=== PATIENT | female | born 1975 | race African-American/Black ===

== ENCOUNTER 2016-07-09 01:50 | Inpatient (IN) | payer OTHER ==
--- NOTE | 2016-06-23 16:05 | History & Physical Pre-Op ---
General Information and [facility] MD Statement: I have seen and personally examined CHRISTINE TREVIZO and documented this H&P. The patient is a 40 year old F who presented with a patient stated chief complaint of right sided low back pain radiating to right buttock and posterior thigh. Source of Information: patient, old records Exam Limitations: no limitations History of Present Illness: Christine is a 40-year-old female who has been complaining of over a year of right sided low back pain radiating to her right buttock, posterior thigh, and into her knee. She does occasionally experience left sided low back pain. She denies any significant left leg symptoms. She denies any numbness/tingling, or weakness in her lower extremities. She does rate her pain between a 6-10/10 in intensity. She does state that it is improved with stretching and worse with lying on her back. She denies any bowel or bladder changes. Christine is unable to lift secondary to her pain. She has tried epidural steroid injections, chiropractic treatment, narcotics, and anti-inflammatory medications, all of which have given her very temporary and minimal symptom relief. Due to the fact that she does have progressively worsening symptoms and is unable to continue with her normal activities of daily living, she wants nothing more to do with nonsurgical treatment. She has been scheduled for a posterior lumbar decompression and fusion at L5-S1 with instrumentation and iliac crest bone grafting on 07/09/2016. Allergies/Medications Allergies: Coded Allergies: No Known Allergies (06/24/16) Home Med list Dhcodeine Bt/Acetaminophn/Caff (Xpqberqeqzyga-Ifwnlzxtmth-Hcld) 320.5 MG-30 MG- 16 MG CAPSULE 30 MG PO Q4 HRS NEEDED PRN pain (Reported) Simvastatin (Simvastatin*) 20 MG TABLET 20 MG PO DAILY hyperlipidemia ( Reported) Compliance With Home Meds: GOOD Past History Medical History Neurological: NONE EENT: NONE Cardiovascular: hyperlipidemia Respiratory: NONE Gastrointestinal: NONE Hepatic: NONE Renal: NONE Musculoskeletal: chronic back pain, disk herniation, degen joint disease, osteoarthritis, sciatica, spinal stenosis Psychiatric: NONE Endocrine: obesity Blood Disorders: NONE Cancer(s): NONE APPLIED EXERCISE PHYSIOLOGIST/Reproductive: NONE Surgical History Pertinent Surgical History: tubal ligation, S/P ORIF RIGHT ANKLE X 2, S/P WISDOM TOOTH EXTRACTION Past Family/Social History Family History Relations & Conditions if any Family history was reviewed; no changes noted. 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 Exam & Diagnostic Data Physical Exam: Height: 5'8" Weight: 248 lbs. Physical Exam General Appearance Alert, Oriented X3, Cooperative, No Acute Distress Skin No Rashes, No Breakdown HEENT Atraumatic, PERRLA, EOMI, Mucous Membr. moist/pink Neck Supple, No JVD, No thryomegaly, +2 Carotid Pulse wo Bruit Lymphatic Cervical nl Cardiovascular Regular Rate, Normal S1, Normal S2, No Murmurs Lungs Clear to Auscultation Abdomen Normal Bowel Sounds, Soft, No Tenderness, No Masses Neurological Strength at 5/5 X4 Ext, Normal Tone, Sensation Intact, Reflexes 2+, pain with lateral bending to the right and with extension of the lumbar spine., tight hamstrings bilaterally Extremities No Clubbing, No Cyanosis, No Edema Vascular Normal Pulses Medication List Current Psychiatric Med(s): Simvastatin 20mg daily Dihydrocodeine 30mg prn pain Diclofenac 50mg Daily -stopped 06/23/16 Assessment/Plan Assessment/Plan: Assessment: DDD/facet arthrosis/lateral disc herniation at L5-S1 Plan: Christine is scheduled for a posterior lumbar decompression and fusion with instrumentation and iliac crest bone grafting at L5-S1 on 07/09/2016. We discussed the procedure in full detail as well as the pre and postoperative course, follow up care and anticipated recovery. We also discussed the risks of surgery not to exclude , paralysis, infection, bleeding, continued pain, failure of the surgery, need for future surgery, DVT, vascular injury, CSF leak, etc. Given these risks, she still wishes to proceed. She is scheduled to follow-up with her primary care physician for preoperative clearance on 2016. Any changes in this patient's plan is based on this patient's outpatient clinical presentation. As Ranked By This Provider Problem List: 1. Hyperlipidemia Attending MD Review Statement Attending Statement Attending MD Statement: examined this patient, discuss w/resident/PA/BLOW DOWN OPERATOR, agreed w/resident/PA/BLOW DOWN OPERATOR, reviewed images
[~2016-07-09] VITALS: Ht 172.7 cm; Wt 112.5 kg
[~2016-07-09 01:50] MED LIST: DICLOFENAC SODI50 M3 PO; DIHYDROCODEIN-1 EACH PO; SIMVASTATIN20 M2 PO
--- NOTE | 2016-07-09 13:14 | Operative Report ---
Operative/Inv Procedure Report Surgery Date: 07/09/16 Name of Procedure: 5 S1 laminectomies discectomy and instrumented pedicle screw fusion L5-S1. Interdiscal cage placement L5-S1 lateral intertransverse process fusion L5-S1 with autologous bone graft. Harvesting of right iliac crest bone graft morcellized implantation of Master graft iliac crest. Use of fluoroscopy. Neuro lysis right L5 nerve root. Pre-Operative Diagnosis: Degenerative disc disease and foraminal stenosis L5-S1 Post-Operative Diagnosis: Same Estimated Blood Loss: 150 Surgeon/Airline Mechanic: ODALYS PHILLIPS,MATY Andrade M.D. Anesthesia: general endotracheal tube Monitors: Neuro monitoring Operative/Procedure Note Note: After induction of anesthesia patient was log rolled into the prone position. Incision was made in the midline and dissection was carried over the spinous processes bilaterally. Deep retractors were placed. The high-speed bur curettes and Kerrisons were used to perform laminectomies at the inferior aspect of L5 and the superior aspect of S1 bilaterally. The left side was prepared for placement of the interdiscal cage. There is severe stenosis in it and adhesions on the right side at L4-5 and a neuro lysis was performed to free up the nerve root. A discectomy was performed on the left side the disc space was debrided with the instrumentation for cage placement. A 9 mm cage was selected an incision was made in the right posterior iliac crest and a subperiosteal dissection was carried laterally over the crest. Esha retractor was placed. The osteotomes and curettes were used to collect morcellized bone graft. The wound was irrigated. Graft site was packed with Master graft covered with Gelfoam and a closure was performed with absorbable suture with nirmal in the skin. The cage was packed with morselized autologous bone graft and tamped into the disc space. This was done using fluoroscopy. Corticotomies were created over each pedicle. The pedicles were probed bilaterally at L5 and S1 the pedicles were tapped checked with the ball tip probe and screws were placed with excellent purchase in all 4 screws. Rods were placed the bolts were tightened and compression the facets were decorticated with a pencil point bur bilaterally at L5-S1 the lateral intertransverse process was decorticated with the high- speed bur between L5 and S1. Bone graft was packed laterally between L5 and S1. AP and lateral fluoroscopy showed appropriate position of hardware. Was copiously irrigated Gelfoam was laid over the laminotomy sites bilaterally. A closure the lumbodorsal fascia and subcutaneous tissue was performed with absorbable suture and the skin was closed with nirmal. After placement of sterile dressings the patient was log rolled on to the stretcher and taken to the recovery room
--- NOTE | 2016-07-09 13:24 | Patient Discharge Instructions ---
Acute Coronary Syndrome Inclusion Criteria At DC or during hospital stay patient has or had the following: ACS DIAGNOSIS No Discharge Core Measures Meds if any: Prescribed or Continued at Discharge Meds if any: NOT Prescribed or Continued at Discharge Congestive Heart Failure Inclusion Criteria At DC or during hospital stay patient has or had the following: CHF DIAGNOSIS No Discharge Core Measures Meds if any: Prescribed or Continued at Discharge Meds if any: NOT Prescribed or Continued at Discharge Cerebrovascular accident Inclusion Criteria At DC or during hospital stay patient has or had the following: CVA/TIA Diagnosis No Discharge Core Measures Meds if any: Prescribed or Continued at Discharge Meds if any: NOT Prescribed or Continued at Discharge Venous thromboembolism Inclusion Criteria VTE Diagnosis No VTE Type NONE VTE Confirmed by (Test) NONE Discharge Core Measures - Per Current guidelines, there needs to be overlap - treatment for the first 5 days of Warfarin therapy. - If discharged on Warfarin prior to 5 days of - overlap therapy, the patient will need to be - assessed for post discharge needs including - *Post discharge parental anticoagulation - *Warfarin and/or parental anticoagulation education - *Follow up date to check INR post discharge At least 5 days overlap therapy as Inpatient No Meds if any: Prescribed or Continued at Discharge Note: Overlap Therapy is Warfarin and Anticoagulant Meds if any: NOT Prescribed or Continued at Discharge
[2016-07-09] MEDS ORDERED: PERCOCET 5-3251 EACH PO (13:29)
[2016-07-09 13:31] LABS: ABSOLUTE BASOPHIL COUNT 0 /CUMM (0.0-0.2); ABSOLUTE EOSINOPHIL COUNT 0 /CUMM (0.0-0.7); ABSOLUTE LYMPH COUNT 1.9 /CUMM (1.2-3.4); ABSOLUTE MONOCYTE COUNT 0.1 /CUMM (0.10-0.60); BASOPHIL % 0.3 % (0.0-2.0); EOSINOPHIL % 0.1 % (0-5); MEAN CORPUSCULAR HGB 31.2 PG (27.0-31.0); MEAN CORPUSCULAR HGB CONC 33.5 G/DL (33.0-37.0); MEAN CORPUSCULAR VOLUME 93.2 FL (81.0-99.0); MEAN PLATELET VOLUME 8.4 FL (7.4-10.4); PLATELET COUNT 246 /CUMM (130-400); RBC DISTRIBUTION WIDTH 13.3 % (11.5-14.5); RED BLOOD CELL CT 3.97 /CUMM (4.20-5.40)
[2016-07-09 13:43] LABS: WHITE BLOOD CELL COUNT 12.1 /CUMM (4.8-10.8)
[2016-07-09 14:41] VITALS: BP 144/72
--- NOTE | 2016-07-09 15:53 | RADIOLOGY REPORT ---
EXAMINATION: XR LUMBOSACRAL SPINE CLINICAL INFORMATION: L5-S1 fusion in OR. COMPARISON: None TECHNIQUE: Fluoroscopic equipment was dedicated to the operating room for the performance of a lumbar spine fusion. 4 spot films were acquired and are archived in PACS. FLUOROSCOPY TIME: 0.3 minutes. FINDINGS: Serial images demonstrate posterior spinal fusion at the L5-S1 level with transpedicular screw placement. Alignment is anatomic. IMPRESSION: Administrative dictation for L5-S1 fusion.
--- NOTE | 2016-07-09 16:04 | PN- Orthopedic ---
Subjective Subjective: postop check: Patient presents to floor, uncomfortable, pain in her back is moderate to severe , so far the IV morphine is not helping her. She denies any nausea vomiting. She denies any numbness or weakness in the extremities, no bowel or bladder incontinence. Objective Vital Signs and I&Os Vital Signs Date Time Temp Pulse Resp B/P B/P Pulse O2 O2 Flow FiO2 Mean Ox Delivery Rate 07/09 1441 98.1 68 18 144/72 97 Nasal 2.0L Cannula 07/09 1430 97 Nasal 2.0L Cannula Intake & Output 07/09 1600 07/09 0800 07/09 0000 07/08 1600 07/08 0800 07/08 0000 Intake Total Output Total Balance Patient 248 lb 248 lb Weight Physical Exam: Well-developed well-nourished appears uncomfortable. HEENT: Atraumatic, extraocular motion intact Neck: Supple, no lymphadenopathy Respiratory: No respiratory distress Abdomen: Soft , nontender Back exam: Dressing clean dry and intact Bilateral lower extremities are neurovascularly intact with sensation and motor grossly intact Wiggles toes, plantar flexion dorsiflexion intact. Extremities: No edema, no calf pain Neuro: Alert and oriented x3 Psych: Mood affect normal, normal memory normal judgment. Skin: Warm and dry, no rash on exposed skin Assessment/Plan Assessment/Plan POD#1 sp L5 S1 laminectomies discectomy and instrumented pedicle screw fusion L5 -S1. Interdiscal cage placement L5-S1 lateral intertransverse process fusion L5 -S1 with autologous bone graft. Harvesting of right iliac crest bone graft morcellized implantation of Master graft iliac crest. Neuro lysis right L5 nerve root. -We will adjust pain regiment -Continue prophylactic antibiotics, Ancef 3 more doses -ALPS for DVT prophylaxis -GI prophylaxis -Out of bed with assistance -DC IVF when tolerating adequate PO Core Measures/Miscellaneous Venous Thromboembolism VTE Risk Factors: Age > 40, Surgery VTE Contraindications: No Contraindications VTE Diagnosis: No Beta Bruce Is Beta Bruce a Home Med? No Antibiotics Is Patient on Antibiotics? Yes If Yes: prophylaxis
[2016-07-09 22:32] VITALS: BP 132/68
[2016-07-10 06:09] VITALS: BP 120/62
[2016-07-10 08:02] LABS: ABSOLUTE BASOPHIL COUNT 0 /CUMM (0.0-0.2); ABSOLUTE EOSINOPHIL COUNT 0 /CUMM (0.0-0.7); ABSOLUTE GRANULOCYTE CT 8.6 /CUMM (1.4-6.5); ABSOLUTE LYMPH COUNT 1.9 /CUMM (1.2-3.4); ABSOLUTE MONOCYTE COUNT 0.6 /CUMM (0.10-0.60); BASOPHIL % 0.4 % (0.0-2.0); EOSINOPHIL % 0.1 % (0-5); GRANULOCYTE % 76.9 % (42.2-75.2); MEAN CORPUSCULAR HGB 31.4 PG (27.0-31.0); MEAN CORPUSCULAR HGB CONC 33.5 G/DL (33.0-37.0); MEAN CORPUSCULAR VOLUME 93.8 FL (81.0-99.0); MEAN PLATELET VOLUME 9.1 FL (7.4-10.4); PLATELET COUNT 204 /CUMM (130-400); RBC DISTRIBUTION WIDTH 13.2 % (11.5-14.5); RED BLOOD CELL CT 3.33 /CUMM (4.20-5.40); WHITE BLOOD CELL COUNT 11.1 /CUMM (4.8-10.8)
[2016-07-10 08:25] LABS: HEMATOCRIT 31.2 % (37-47)
[2016-07-10 14:28] VITALS: BP 114/60
--- NOTE | 2016-07-10 15:11 | PN- Orthopedic ---
Subjective Subjective: Patient is c/o expected postop incisional pain. No new or worsening leg symptoms. No numbness/tingling. No weakness. Patient is getting up to the bathroom with minimal assistance. No fever/chills. No N/V. Tolerating po. Voiding without difficulty. She is c/o bilateral lower extremity "heaviness". Labs reviewed and stable. Review of Systems: Remarkable for the above complaints. Objective Vital Signs and I&Os Vital Signs Date Time Temp Pulse Resp B/P B/P Pulse O2 O2 Flow FiO2 Mean Ox Delivery Rate 07/10 1428 98.6 90 20 114/60 95 Room Air 07/10 0609 98.3 88 20 120/62 97 Room Air 07/09 2232 99.3 73 20 132/68 95 Nasal 2.0L Cannula 07/09 1700 Nasal 2.0L Cannula 07/09 1600 Nasal 2.0L Cannula Intake & Output 07/10 1600 07/10 0800 07/10 0000 07/09 1600 07/09 0800 07/09 0000 Intake Total 1040 880 Output Total 925 650 100 Balance 115 230 -100 Intake, IV 800 100 Intake, Oral 240 780 Output, Urine 925 650 100 Patient 248 lb Weight Physical Exam General Appearance: well developed/nourished, no apparent distress, alert, awake , mild distress Respiratory: normal breath sounds, no respiratory distress, lungs clear Cardiovascular: regular rate/rhythm Peripheral Pulses: 2+ tibialis posterior (R), 2+ tibialis posterior (L), 2+ dorsalis pedis (R), 2+ dorsalis pedis (L) Abdomen: normal bowel sounds, soft, non-tender Back: Incision C/D/I. Dressings changed. Extremities: normal inspection, normal capillary refill, no edema, Neurovascularly intact and stable without any new or worsening gross motor or sensory loss. Neurologic/Psychiatric: no motor/sensory deficits, awake, alert, oriented x 3 Reflexes: 1+: knee (R), knee (L), ankle (R), ankle (L). Skin: intact, normal color, warm/dry Assessment/Plan Assessment/Plan Assessment: S/p PLDF L5-S1 with Instr./ICBG Plan: Continue with Morphine/Percocet. HLIV Ambulate with PT/Nursing Continue with ice prn. Will F/U in am. Possible D/C home in am. Disch. Instr. given Do's and Don'ts explained. Problem List: 1. Hyperlipidemia Core Measures/Miscellaneous Venous Thromboembolism VTE Risk Factors: Age > 40, Surgery VTE Contraindications: No Contraindications VTE Diagnosis: No Beta Bruce Is Beta Bruce a Home Med? No Antibiotics Is Patient on Antibiotics? Yes If Yes: prophylaxis Attending MD Review Statement Attending Statement Attending MD Statement: examined this patient, discuss w/resident/PA/CROP SETTING OUT MACHINE OPERATOR, agreed w/resident/PA/CROP SETTING OUT MACHINE OPERATOR
[2016-07-10 22:34] VITALS: BP 123/65
[2016-07-11 06:50] VITALS: BP 116/62
[2016-07-11] MEDS ORDERED: TYLENOL325 M1 PO (11:03)
[2016-07-11] MEDS ORDERED: BISAC-EVAC10 M1 PR (11:03)
[2016-07-11] MEDS ORDERED: CALCIUM CARBON500 M2 PO (11:06)
[2016-07-11] MEDS ORDERED: DOCUSATE SODIU100 M3 PO (11:07)
[2016-07-11] MEDS ORDERED: MILK OF MA400 MG/52 PO (11:07)
[2016-07-11] MEDS ORDERED: ONE DAILY MULT1 EAC2 PO (11:07)
[2016-07-11] MEDS ORDERED: VITAMIN D31000 UNI2 PO (11:07)
[2016-07-11 12:31] VITALS: BP 118/62
[2016-07-11] MEDS ORDERED: ZOFRAN ODT4 M1 SL (12:53)
--- NOTE | 2016-07-11 13:02 | Surg Short-stay <48hrs Dis Sum ---
See Addendum Visit Information Visit Dates Admission Date: 07/09/16 Discharge Date: 07/11/16 Surgical Short Stay DC Summary Admission Diagnosis: Degenerative disc disease and foraminal stenosis L5-S1 Final Diagnosis: SAME Procedure(s): 5 S1 laminectomies discectomy and instrumented pedicle screw fusion L5-S1. Interdiscal cage placement L5-S1 lateral intertransverse process fusion L5-S1 with autologous bone graft. Harvesting of right iliac crest bone graft morcellized implantation of Master graft iliac crest. Use of fluoroscopy. Neuro lysis right L5 nerve root. Summary/Significant Findings: Mrs. Alex is a 40 year old female with a past medical history significant for hyperlipidemia and degenerative disc disease. She was taken electively to the OR on 07/10/16 and underwent a L5 S1 laminectomies discectomy and instrumented pedicle screw fusion L5-S1. Interdiscal cage placement L5-S1 lateral intertransverse process fusion L5-S1 with autologous bone graft. She did well intraoperatively and was transferred to the surgical floor in stable condition. Her diet was advanced and her IVF were stopped. She was able to spontaneously void. On POD #1, she complained of nausea yet was eating her food. She was seen by Dr. Rocha, and was discharged home in stable condition. She will see Dr. Rocha in follow up as instructed. Condition at Discharge: stable Discharge Disposition: home or self care Discharge instructions provided to patient/family: Yes Post discharge follow-up plan: Dr. Rocha call for follow up appointment
--- NOTE | 2016-07-11 13:13 | PN- Orthopedic ---
Subjective Subjective: POD #1 s/p L5-S1 lumbar decompression and fusion/R ICBG. Resting comfortably in bed. Complains of dizziness at times. No n/V, F/C, CP/SOB. Objective Vital Signs and I&Os Vital Signs Date Time Temp Pulse Resp B/P B/P Pulse O2 O2 Flow FiO2 Mean Ox Delivery Rate 07/11 1231 98.1 94 18 118/62 98 Room Air Room Air 07/11 0650 99.6 84 20 116/62 94 07/10 2234 98.3 87 22 123/65 99 Room Air 07/10 1428 98.6 90 20 114/60 95 Room Air Intake & Output 07/11 1600 07/11 0800 07/11 0000 07/10 1600 07/10 0800 07/10 0000 Intake Total 1900 1040 880 Output Total 700 750 800 925 750 Balance -700 -750 1100 115 130 Intake, IV 400 800 100 Intake, Oral 1500 240 780 Output, Urine 700 750 800 925 750 Physical Exam: Gen: AAox3 in NAD Cor: s1+S2+ Lungs: CTA allan Abd: soft, NT, ND, +Bs x4 Back: dressing x2 C/D/I. No soft tissue mass to suggest hematoma. No surrounding eyrthema or drainage noted. Ext: no edema or calf tenderness to allan lower extremities. Current Medications: Current Medications Sig/Nereida Start time Last Medication Dose Route Stop Time Status Admin Acetaminophen 650 MG Q4P PRN 07/09 1315 AC PO Atorvastatin Calcium 10 MG 1700 07/09 1700 AC 07/10 PO 1622 Bisacodyl 10 MG DAILY NEEDED PRN 07/09 1315 AC AK Calcium 600 MG BID 07/09 2200 AC 07/10 PO 202 Cholecalciferol 1,000 IU DAILY 07/10 1000 AC 07/10 PO 0837 Docusate Sodium 100 MG TID 07/09 1600 AC 07/10 PO 2020 Ketorolac 30 MG Q6-PRN PRN 07/09 1615 DC 07/10 Tromethamine IV 1622 Lactated Ringer's 1,000 ML Q10H 07/09 1315 DC 07/09 IV 2042 Magnesium Hydroxide 30 ML Q12P PRN 07/09 1330 AC PO Morphine Sulfate 2 MG Q2P PRN 07/09 1615 AC IV Morphine Sulfate 4 MG Q2 HRS NEEDED PRN 07/09 1615 DC 07/09 IV 2137 Multivitamins 1 TAB DAILY 07/10 1000 AC 07/10 PO 0838 Ondansetron HCl 4 MG Q6P PRN 07/09 1315 AC 07/11 IV 0813 Oxycodone/ 1 TAB Q4P PRN 07/09 1315 AC 07/11 Acetaminophen PO 1258 Oxycodone/ 2 TAB Q4P PRN 07/09 1315 AC 07/11 Acetaminophen PO 0146 Patient Medication 1 ED .STK-MED ONE 07/10 1400 CO Teaching ED 07/10 1401 Trimethobenzamide HCl 200 MG Q6P PRN 07/09 1315 AC IM Results Last 48 Hours of Labs: Laboratory Tests 07/10 07/09 0636 1315 Hematology CBC w Diff NO MAN DIFF REQ NO MAN DIFF REQ WBC (4.8 - 10.8 /CUMM) 11.1 H 12.1 H RBC (4.20 - 5.40 /CUMM) 3.33 L 3.97 L Hgb (12.0 - 16.0 G/DL) 10.5 L 12.4 Hct (37 - 47 %) 31.2 L 37.0 MCV (81.0 - 99.0 FL) 93.8 93.2 MCH (27.0 - 31.0 PG) 31.4 H 31.2 H RDW (11.5 - 14.5 %) 13.2 13.3 Plt Count (130 - 400 /CUMM) 204 246 MPV (7.4 - 10.4 FL) 9.1 8.4 Gran % (42.2 - 75.2 %) 76.9 H 83.0 H Lymphocytes % (20.5 - 51.1 %) 17.1 L 15.6 L Monocytes % (1.7 - 9.3 %) 5.5 1.0 L Eosinophils % (0 - 5 %) 0.1 0.1 Basophils % (0.0 - 2.0 %) 0.4 0.3 Absolute Granulocytes (1.4 - 6.5 /CUMM) 8.6 H 10.0 H Absolute Lymphocytes (1.2 - 3.4 /CUMM) 1.9 1.9 Absolute Monocytes (0.10 - 0.60 /CUMM) 0.6 0.1 L Absolute Eosinophils (0.0 - 0.7 /CUMM) 0 0 Absolute Basophils (0.0 - 0.2 /CUMM) 0 0 PUBS MCHC (33.0 - 37.0 G/DL) 33.5 33.5 Assessment/Plan Assessment/Plan A: POD #1 s/p L5-S1 lumbar decompression with fusion/ R ICBG; AVSS Plan: D/C home today with Zofran prn. Core Measures/Miscellaneous Venous Thromboembolism VTE Risk Factors: Age > 40, Surgery VTE Contraindications: No Contraindications VTE Diagnosis: No Beta Bruce Is Beta Bruce a Home Med? No Antibiotics Is Patient on Antibiotics? Yes If Yes: prophylaxis
[2016-07-11 14:56] VITALS: BP 136/62
== END 2016-07-11 18:45 | DRG 460 ==
LOC: SDA 01:50 → ENRESERV 13:13 → 2NB 14:17 → ENPENDDIS 07-11 13:46 → 2NB 07-11 18:45
PROVIDERS: Orthopaedic Surgery Orthopaedic Surgery of the Spine; ADMIT Orthopaedic Surgery Orthopaedic Surgery of the Spine
PROC: 0SG30AJ Fusion of Lumbosacral Joint with Interbody Fusion Device, Posterior Approach, Anterior Column, Open Approach (ICD-10-PCS; principal; 2016-07-09)
DX: M47.9 Spondylosis, unspecified (principal); E78.5 Hyperlipidemia, unspecified; M48.07 Spinal stenosis, lumbosacral region; E66.9 Obesity, unspecified; Z68.37 Body mass index [BMI] 37.0-37.9, adult
CPT/HCPCS: 2NBP; 36415; 72100; 87086; 97116-GO; 97161-GP; 97530-GO; C1713; J0131; J0690; J1885; J2405; J3250; J3490; J7120

== ENCOUNTER 2017-07-21 01:41 | Inpatient (IN) | payer OTHER ==
--- NOTE | 2017-07-19 14:10 | History & Physical Pre-Op ---
General Information and [facility] MD Statement: I have seen and personally examined CHRISTINE TREVIZO and documented this H&P. The patient is a 41 year old F who presented with a patient stated chief complaint of bilateral low back pain L>R, radiating to buttocks. Source of Information: patient, old records Exam Limitations: no limitations History of Present Illness: Christine is a 41-year-old female who is status post posterior lumbar decompression and fusion L5-S1 with instrumentation on 07/09/2016. She has been complaining of progressively worsening low back pain radiating into bilateral buttocks, left side greater than right. She denies any radiating leg pain, numbness/tingling, or weakness in her lower extremities. She does, however, complain of intermittent pain in the bottom of her feet. This is experienced when getting up out of bed or from a seated position. She rates her low back pain between a 4-6/10 in intensity. She has failed to respond to conservative measures. 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 There is also suspected impingement of the hardware. Given the fact that Christine has failed to respond to conservative measures and wants nothing more to do with nonsurgical treatment, she has been consented for a revision posterior lumbar decompression and fusion with inspection of fusion and possible reinstrumentation L4-S1 with iliac crest bone grafting on 07/22/2017. Allergies/Medications Allergies: Coded Allergies: No Known Allergies (06/24/16) Home Med list Calcium Carbonate 500 MG CALCIUM (1,250 MG) TABLET 600 MG PO BID [facility] Cholecalciferol (Vitamin D3) 1,000 UNIT TABLET 1,000 IU PO DAILY [facility] Simvastatin (Simvastatin*) 20 MG TABLET 20 MG PO DAILY hyperlipidemia ( Reported) Tramadol HCl/Acetaminophen (Tramadol-Acetaminophn 37.5-325) 37.5 MG-325 MG TABLET 1 TAB PO Q4-6 PRN PRN pain (Reported) Compliance With Home Meds: GOOD Past History Medical History Neurological: NONE EENT: NONE Cardiovascular: hyperlipidemia Respiratory: NONE Gastrointestinal: NONE Hepatic: NONE Renal: KIDNEY STONES Musculoskeletal: chronic back pain, disk herniation, degen joint disease, osteoarthritis, sciatica, spinal stenosis, right arm weakness Psychiatric: NONE Endocrine: obesity Blood Disorders: NONE Cancer(s): NONE 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: 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 History of MRSA: No History of VRE: No History of CDIFF: No Surgical History Pertinent Surgical History: tubal ligation, S/P ORIF RIGHT ANKLE X 2 S/P WISDOM TOOTH EXTRACTION, s/p PLDF L5-S1 with Instr./ICBG 06/2016 Past Family/Social History Family History Relations & Conditions if any Relation not specified for: *No pertinent family history Psychosocial History Services at Home None Primary Language: Angolan Smoking Status: Never Smoked ETOH Use: occasional use Illicit Drug Use: denies illicit drug use Other Social History: with 3 children Employment History Employment: Employed 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 Exam & Diagnostic Data Physical Exam: Height: 5'8" Weight: 256 lbs. Physical Exam General Appearance Alert, Oriented X3, Cooperative, No Acute Distress Skin No Rashes, No Breakdown, No Significant Lesion HEENT Atraumatic, PERRLA, EOMI, Mucous Membr. 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 Plan: Christine is scheduled for a revision posterior lumbar decompression and fusion with inspection of fusion mass and possible reinstrumentation L4-S1 with iliac crest bone grafting on 07/21/2017. We discussed the procedure in full detail as well as the pre-and postoperative course, follow-up care, and anticipated recovery. We also discussed the do's and don'ts and postoperative discharge instructions. We discussed the benefits, alternatives, and risks, not to exclude, , paralysis, infection, bleeding, continued pain, failure of the surgery, need for future surgery, DVT, vascular injury, CSF leak, etc., and given these risks, she still wishes to proceed. She has been seen by her primary care physician, Dr. Rocha for preoperative clearance. We may consider obtaining a cervical MRI scan during her hospital stay to rule out spinal stenosis, nerve impingement, or disc herniation given her right arm weakness. Any changes in this patient's plan is based on this patient's outpatient clinical presentation. As Ranked By This Provider Problem List: 1. Hyperlipidemia Copies To: Aj PHILLIPS,Jose Medication List Current Psychiatric Med(s): Simvastatin 20mg daily Tramadol 37.5/325 1 q 6 hrs prn pain Calcium/Vitamin D daily Attending MD Review Statement Attending Statement Attending MD Statement: examined this patient, discuss w/resident/PA/MOONER, agreed w/resident/PA/MOONER, reviewed images
[~2017-07-21] VITALS: Ht 172.7 cm; Wt 116.1 kg
[~2017-07-21 01:41] MED LIST changes: +BISAC-EVAC10 M1 PR; +CALCIUM CARBON500 M2 PO; +DOCUSATE SODIU100 M3 PO; +MILK OF MA400 MG/52 PO; +ONE DAILY MULT1 EAC2 PO; +PERCOCET 5-3251 EACH PO; +TYLENOL325 M1 PO; +VITAMIN D31000 UNI2 PO; +ZOFRAN ODT4 M1 SL
[2017-07-21] MEDS ORDERED: TRAMADOL-ACETA1 EACH PO (11:51)
--- NOTE | 2017-07-22 14:15 | Operative Report ---
Operative/Inv Procedure Report Surgery Date: 07/22/17 Name of Procedure: The lumbar sacral inspection of fusion mass removal of pedicle screw instrumentation L5-S1. Laminectomies L3 4 4551. Lumbosacral fusion L4 5 S1 with local bone and pedicle screw instrumentation. Use of fluoroscopy. Pre-Operative Diagnosis: Nonunion L5-S1. Loose hardware pedicle screws. Lateral foraminal stenosis L4 5 L3 4. Post-Operative Diagnosis: Same Estimated Blood Loss: 50ml to 100ml Surgeon/Wastewater Plant Operator: Aj PHILLIPS,Jose Andrade M.D. Anesthesia: general endotracheal tube Monitors: Neuro Operative/Procedure Note Note: After adequate general anesthesia was achieved the patient was placed in the prone position. The back was sterilely prepped and draped the previous incision was used and entered sharply. The dissection was carried over the dorsal elements and laterally to the fusion mass. The hardware was found to be loose and the sacrum. There was a nonunion with gross motion. The hardware was removed. The screws were checked with a neuro monitoring device and found to be normal. Screws were easily removed. The ball tip probe was used and was uneventful. Laminectomies were performed to the scarred L5-S1 L4 5 L3 4 on the right side. Laminectomies were also performed on the left side and L5-S1. There was impingement at the facets and the significant formation of sinoatrial tissue above the hardware adjacent to the L4 5 facet on the left. There is also significant degenerative bone formation impingement onto the lamina at L3 4 on the left. Laminectomies were performed in that region the soft tissue synovial tissue was removed as was the bony impingement with laminectomies at L3 4. Synovectomy tissue was sent for pathology. The instrumentation system was used to place the pedicle screws with larger diameter screws than prior and excellent purchase. The construct was checked in AP and lateral plane and found to be appropriate. Bone graft was packed laterally L4 to S1. The wound was copiously irrigated Gelfoam was laid over the laminotomy site and a closure the lumbodorsal fascia was performed with absorbable suture the skin was closed with nirmal to placement of sterile dressings the patient was log rolled onto the stretcher.
--- NOTE | 2017-07-22 15:04 | RADIOLOGY REPORT ---
EXAMINATION: XR LUMBOSACRAL SPINE CLINICAL INFORMATION: 41-year-old female for L4 to S1 laminectomy and removal of hardware. COMPARISON: None TECHNIQUE AND FINDINGS: C-arm fluoroscopy assistance is provided at the time of the procedure. 2 spot radiographs were obtained in the frontal, lateral projection of the lumbosacral spine. Postsurgical changes of spinal fusion is noted at L5-S1 with suggestion of subtle grade 1 anterolisthesis of L5 over S1. Full procedural detail will be dictated by the performing surgeon, Dr. Rocha. Fluoroscopy time: 0.29 minutes. IMPRESSION: Fluoroscopic assistance is provided at the time of the procedure to Dr. Rocha. Full procedural detail will be dictated by Dr. Rocha.
[2017-07-22] MEDS ORDERED: TYLENOL EXTRA500 M2 PO (15:33)
[2017-07-22] MEDS ORDERED: DULCOLAX10 M1 RC (15:33)
[2017-07-22] MEDS ORDERED: PERCOCET 5-3251 EACH PO (15:33)
[2017-07-22] MEDS ORDERED: MILK OF MA400 MG/52 PO (15:33)
[2017-07-22] MEDS ORDERED: MULTIVITAMINS1 EAC9 PO (15:33)
[2017-07-22] MEDS ORDERED: COLACE100 M1 PO (15:33)
[2017-07-22 16:00] VITALS: BP 138/78
[2017-07-22 16:01] LABS: ABSOLUTE BASOPHIL COUNT 0 /CUMM (0.0-0.2); ABSOLUTE EOSINOPHIL COUNT 0 /CUMM (0.0-0.7); ABSOLUTE GRANULOCYTE CT 3.6 /CUMM (1.4-6.5); ABSOLUTE LYMPH COUNT 1.2 /CUMM (1.2-3.4); ABSOLUTE MONOCYTE COUNT 0.1 /CUMM (0.10-0.60); BASOPHIL % 0.3 % (0.0-2.0); GRANULOCYTE % 73.4 % (42.2-75.2); HEMATOCRIT 37.9 % (37-47); MEAN CORPUSCULAR HGB 30.5 PG (27.0-31.0); MEAN CORPUSCULAR HGB CONC 32.8 G/DL (33.0-37.0); MEAN CORPUSCULAR VOLUME 92.9 FL (81.0-99.0); MEAN PLATELET VOLUME 8.4 FL (7.4-10.4); PLATELET COUNT 263 /CUMM (130-400); RBC DISTRIBUTION WIDTH 13.4 % (11.5-14.5); RED BLOOD CELL CT 4.09 /CUMM (4.20-5.40); WHITE BLOOD CELL COUNT 4.9 /CUMM (4.8-10.8)
--- NOTE | 2017-07-22 17:09 | PN- Neurosurgical ---
Subjective Subjective: POC pt very sleepy in bed. Minimal pain. Deneis paresthesias. No N/V. Due to void Has not ambulated yet. Tolerating PO Deneis CP/SOB Objective Vital Signs and I&Os Intake & Output 07/22 1600 07/22 0800 07/22 0000 07/21 1600 07/21 0800 07/21 0000 Intake Total Output Total Balance Patient 256 lb Weight Physical Exam: gen- NAD, very sleepy resp- clear cardiac-RRR abd- soft, NT back- dressing clean and dry, nontender ext- distal seneory and motor funtion intact. 2+PT pulse bilaterally Current Medications: Current Medications Sig/Nereida Start time Last Medication Dose Route Stop Time Status Admin Acetaminophen 650 MG Q4P PRN 07/22 1515 AC PO Atorvastatin Calcium 10 MG 1700 07/22 1700 AC PO Bisacodyl 10 MG DAILY NEEDED PRN 07/22 1515 AC AR Calcium 600 MG BID 07/22 2100 AC PO Cefazolin Sodium 1,000 MG IQ8 07/22 1600 AC IV 07/23 0801 Cefazolin Sodium 2,000 MG ONCE 07/22 0000 NR IV 07/22 2359 Cholecalciferol 1,000 IU DAILY 07/23 0900 AC PO Docusate Sodium 100 MG TID 07/22 2100 AC PO Lactated Ringer's 1,000 ML Q10H 07/22 1530 AC 07/22 IV 1702 Magnesium Hydroxide 30 ML Q8P PRN 07/22 1530 AC PO Morphine Sulfate 1 MG Q3P PRN 07/22 1515 AC IV Multivitamins 1 TAB DAILY 07/23 0900 AC PO Ondansetron HCl 4 MG Q6P PRN 07/22 1515 AC IV Oxycodone/ 1 TAB Q4P PRN 07/22 1515 AC Acetaminophen PO Oxycodone/ 2 TAB Q4P PRN 07/22 1515 AC Acetaminophen PO Scopolamine HBr 0 .STK-MED ONE 07/22 1050 DC TOP Trimethobenzamide HCl 200 MG Q6P PRN 07/22 1515 AC IM Results Last 48 Hours of Labs: Laboratory Tests 07/22 1530 Hematology CBC w Diff NO MAN DIFF REQ WBC (4.8 - 10.8 /CUMM) 4.9 RBC (4.20 - 5.40 /CUMM) 4.09 L Hgb (12.0 - 16.0 G/DL) 12.5 Hct (37 - 47 %) 37.9 MCV (81.0 - 99.0 FL) 92.9 MCH (27.0 - 31.0 PG) 30.5 MCHC (33.0 - 37.0 G/DL) 32.8 L RDW (11.5 - 14.5 %) 13.4 Plt Count (130 - 400 /CUMM) 263 MPV (7.4 - 10.4 FL) 8.4 Gran % (42.2 - 75.2 %) 73.4 Lymphocytes % (20.5 - 51.1 %) 24.0 Monocytes % (1.7 - 9.3 %) 1.3 L Eosinophils % (0 - 5 %) 1.0 Basophils % (0.0 - 2.0 %) 0.3 Absolute Granulocytes (1.4 - 6.5 /CUMM) 3.6 Absolute Lymphocytes (1.2 - 3.4 /CUMM) 1.2 Absolute Monocytes (0.10 - 0.60 /CUMM) 0.1 Absolute Eosinophils (0.0 - 0.7 /CUMM) 0 Absolute Basophils (0.0 - 0.2 /CUMM) 0 Assessment/Plan Assessment/Plan 41 yo F SP removal of pedicle screw instrumentation L5-S1, Laminectomies L3 4 45 -S1. Lumbosacral fusion L4 5 S1 with local bone and pedicle screw instrumentation. STable Pain management PT-WBAT DVT ppx- teds and ALPS and early ambulation reg diet reg home meds dressing change POD2 FU AM labs Core Measures Venous Thromboembolism VTE Risk Factors Surgery No Mechanical VTE Prophylaxis d/t N/A MechProphylax Ordered No VTE Pharm Prophylaxis d/t Surgical Contraindication
[2017-07-22 19:00] VITALS: BP 110/72
[2017-07-22 22:10] VITALS: BP 108/60
[2017-07-23 06:15] VITALS: BP 118/57
[2017-07-23 08:08] LABS: ABSOLUTE BASOPHIL COUNT 0 /CUMM (0.0-0.2); ABSOLUTE EOSINOPHIL COUNT 0 /CUMM (0.0-0.7); ABSOLUTE GRANULOCYTE CT 10.4 /CUMM (1.4-6.5); ABSOLUTE LYMPH COUNT 1.1 /CUMM (1.2-3.4); ABSOLUTE MONOCYTE COUNT 0.5 /CUMM (0.10-0.60); BASOPHIL % 0.3 % (0.0-2.0); EOSINOPHIL % 0 % (0-5); MEAN CORPUSCULAR HGB 30.8 PG (27.0-31.0); MEAN CORPUSCULAR HGB CONC 33.3 G/DL (33.0-37.0); MEAN CORPUSCULAR VOLUME 92.4 FL (81.0-99.0); PLATELET COUNT 278 /CUMM (130-400); RBC DISTRIBUTION WIDTH 13.4 % (11.5-14.5)
[2017-07-23 09:00] LABS: GRANULOCYTE % 86.1 % (42.2-75.2); WHITE BLOOD CELL COUNT 12.1 /CUMM (4.8-10.8)
[2017-07-23 13:46] VITALS: BP 122/70
--- NOTE | 2017-07-23 17:29 | PN- Orthopedic ---
Subjective Subjective: Patient c/o expected postop incisional pain. No leg pain. + mild left hip pain when getting OOB. No N/V. Lisy. po. Ambulating without difficulty. + flatus and voiding without difficulty. + Migraine. Review of Systems: Remarkable for the above complaints. Objective Vital Signs and I&Os Vital Signs Date Time Temp Pulse Resp B/P B/P Pulse O2 O2 Flow FiO2 Mean Ox Delivery Rate 07/23 1346 99.4 81 18 122/70 97 Room Air 07/23 1106 Room Air Room Air 07/23 0615 98.1 75 20 118/57 96 07/22 2210 97.8 82 18 108/60 96 07/22 1900 97.4 60 18 110/72 97 Room Air Intake & Output 07/23 1600 07/23 0800 07/23 0000 07/22 1600 07/22 0800 07/22 0000 Intake Total 1280 Output Total 300 300 Balance -300 980 Intake, IV 800 Intake, Oral 480 Output, Urine 300 300 Patient 256 lb Weight Weight Bed scale Measurement Method Physical Exam General Appearance: well developed/nourished, alert, awake, comfortable Head: atraumatic Respiratory: normal breath sounds, no respiratory distress Cardiovascular: regular rate/rhythm Abdomen: normal bowel sounds, soft, non-tender Back: Incision C/D/I. Dressings changed. Neurologic/Psychiatric: Neurovascularly intact and stable with no new or worsening gross motor or sensory loss. Skin: intact, normal color, warm/dry Assessment/Plan Assessment/Plan Assessment: 1. s/p Rev. PLDF L5-S1 with Instr and L4-5 Lami 2. Migraine Plan: Continue Oxycodone prn pain. Excedrine prn Migraine Ambulate with PT and nursing Will F/U in am. Possible D/C once cleared by PT. Bowel regimen. Problem List: 1. Hyperlipidemia Core Measures Venous Thromboembolism VTE Risk Factors Surgery No Mechanical VTE Prophylaxis d/t N/A MechProphylax Ordered No VTE Pharm Prophylaxis d/t Surgical Contraindication Attending MD Review Statement Attending Statement Attending MD Statement: examined this patient, discuss w/resident/PA/HEALTH INFORMATION DIRECTOR, agreed w/resident/PA/HEALTH INFORMATION DIRECTOR
[2017-07-23 21:58] VITALS: BP 126/82
[2017-07-24 06:00] VITALS: BP 112/68
--- NOTE | 2017-07-24 09:42 | PN- Orthopedic ---
Subjective Subjective: feeling ok, pain controlled Objective Vital Signs and I&Os Vital Signs Date Time Temp Pulse Resp B/P B/P Pulse O2 O2 Flow FiO2 Mean Ox Delivery Rate 07/24 0600 98.3 77 18 112/68 97 Room Air 07/23 2158 98.5 83 22 126/82 97 Room Air 07/23 1346 99.4 81 18 122/70 97 Room Air 07/23 1106 Room Air Room Air Intake & Output 07/24 1600 07/24 0800 07/24 0000 07/23 1600 07/23 0800 07/23 0000 Intake Total 113 138 7247 Output Total 350 250 300 300 Balance -230 -70 -300 980 Intake, IV 800 Intake, Oral 120 180 480 Output, Urine 350 250 300 300 Patient 256 lb 256 lb Weight Weight Bed scale Measurement Method Physical Exam: gen- nad incision- dressing cdi- changed. incision w nirmal, no erythema, no drainage. ttp at incision. Assessment/Plan Assessment/Plan A- POD2 sp lumbar decompression/fusion/lami, stable P- d/w Dr. Rocha, stable for dc from hospital. Core Measures Venous Thromboembolism VTE Risk Factors Surgery No Mechanical VTE Prophylaxis d/t N/A MechProphylax Ordered No VTE Pharm Prophylaxis d/t Surgical Contraindication
--- NOTE | 2017-07-24 09:48 | Surg Short-stay <48hrs Dis Sum ---
Visit Information Visit Dates Admission Date: 07/22/17 Discharge Date: 07/24/17 Surgical Short Stay DC Summary Admission Diagnosis: Nonunion L5-S1. Loose hardware pedicle screws. Lateral foraminal stenosis L4 5 L3 4. Final Diagnosis: same, s/p "Lumbar sacral inspection of fusion, mass removal of pedicle screw instrumentation L5-S1, laminectomies L3-4, L4-5, L5-S1, Lumbosacral fusion L4-5, L5-S1 with local bone and pedicle screw instrumentation. Use of fluoroscopy." Procedure(s): Lumbar sacral inspection of fusion, mass removal of pedicle screw instrumentation L5-S1, laminectomies L3-4, L4-5, L5-S1, Lumbosacral fusion L4-5, L5-S1 with local bone and pedicle screw instrumentation. Use of fluoroscopy. Summary/Significant Findings: Admitted for elective above detailed Lumbar procedure on 07/22/17. Recovered well on surgical floor. Stable for DC from hospital today per Dr. Rocha. Refer to daily neurosurg notes for further details. Condition at Discharge: stable Discharge Disposition: home or self care Discharge instructions provided to patient/family: Yes Post discharge follow-up plan: Call to be seen By Dr. Rocha in 1-2 weeks
== END 2017-07-24 11:21 | DRG 460 ==
LOC: SDA 01:41 → UNDOADMIN 01:41 → SDA 07-22 08:59 → ENRESERV 07-22 14:54 → ENTRNSPT 07-22 15:42 → 2NA 07-22 16:07 → CMPTRNSPT 07-22 16:10 → ENPENDDIS 07-24 09:51 → ENTRNSPT 07-24 11:05 → EDTRNSPT 07-24 11:14 → EDTRNSPTSTS 07-24 11:14 → 2NA 07-24 11:21 → CMPTRNSPT 07-24 11:29
PROVIDERS: Orthopaedic Surgery Orthopaedic Surgery of the Spine
PROC: 0SB00ZZ Excision of Lumbar Vertebral Joint, Open Approach (ICD-10-PCS; principal; 2017-07-22)
PROC: 0SG0071 Fusion of Lumbar Vertebral Joint with Autologous Tissue Substitute, Posterior Approach, Posterior Column, Open Approach (ICD-10-PCS; principal; 2017-07-22)
PROC: 01NB0ZZ Release Lumbar Nerve, Open Approach (ICD-10-PCS; principal; 2017-07-22)
PROC: 0SG3071 Fusion of Lumbosacral Joint with Autologous Tissue Substitute, Posterior Approach, Posterior Column, Open Approach (ICD-10-PCS; principal; 2017-07-22)
PROC: 4A11X4G Monitoring of Peripheral Nervous Electrical Activity, Intraoperative, External Approach (ICD-10-PCS; principal; 2017-07-22)
PROC: 0QP004Z Removal of Internal Fixation Device from Lumbar Vertebra, Open Approach (ICD-10-PCS; principal; 2017-07-22)
DX: M96.0 Pseudarthrosis after fusion or arthrodesis (principal); T84.226A Displacement of internal fixation device of vertebrae, initial encounter; E04.2 Nontoxic multinodular goiter; M48.061 Spinal stenosis, lumbar region without neurogenic claudication; M51.36 Other intervertebral disc degeneration, lumbar region; Y83.8 Other surgical procedures as the cause of abnormal reaction of the patient, or of later complication, without mention of misadventure at the time of the procedure; M67.48 Ganglion, other site; E78.5 Hyperlipidemia, unspecified
CPT/HCPCS: 2NAP; 36592; 72100; 88304; 97116-GO; 97161-GP; C1713; J0131; J0690; J1644; J2250; J2405; J3490; J7120